=== PATIENT | male | born 1995 | race Caucasian/White ===

== ENCOUNTER 2022-04-11 22:45 | Emergency (ER) | payer OTHER ==
[~2022-04-11 22:45] MED LIST: Iopamidol 370 76% 100 ML VIAL ONE
[2022-04-11] MEDS ORDERED: Sodium Chloride 0.9% 1,000 ML ONE (23:28)
[2022-04-11] MEDS ORDERED: Ondansetron PF 4 MG/2 ML Vial ONE (23:28)
[2022-04-11 23:47] LABS: #Basophils 0.1 thou/uL (0.0-0.2); #Lymphocytes 1.5 thou/uL (1.20-3.40); #Monocytes 0.9 thou/uL (0.11-0.59); #Neutrophils 6.1 thou/uL (1.40-6.50); %Basophils 1.5 % (0.0-1.0); %Lymphocytes 17.6 % (21.0-51.0); %Monocytes 10.2 % (0.0-10.0); %Neutrophils 70.8 % (42.0-75.0); Hemoglobin 13.3 g/dL (14.0-18.0); Large Platelets SLIGHT; MDiff Complete? YES; Mean Corpuscular Hemoglobin 31.5 pg (27.0-31.0); Mean Corpuscular Volume 90.1 fl (78.0-98.0); Mean Platelet Volume 12.9 fL (7.4-10.4); Platelet Count 140 10x3/uL (130-400); Platelet Morphology Comment Appears Adequate; RBC Distribution Width 11.3 % (11.5-14.5); RBC Morphology Normal; White Blood Cell (WBC) Count 8.7 10x3/uL (4.8-10.8)
[2022-04-11 23:57] LABS: ALT (SGPT) 61 U/L (8-55); AST (SGOT) 59 U/L (5-34); Albumin 4.3 g/dL (3.5-5.0); Alkaline Phosphatase 51 U/L (40-110); Anion Gap 14 mmol/L (10-20); BUN (Urea Nitrogen) 17 mg/dL (8.9-20.6); Bilirubin, Total 0.7 mg/dL (0.2-1.2); Calc. Creatinine Clearance 0 mL/min (70-130); Calcium 9.3 mg/dL (7.8-10.44); Carbon Dioxide 24 mmol/L (22-29); Chloride 103 mmol/L (98-107); Estimated GFR 122; Globulin 2.8 g/dL (2.4-3.5); Glucose 136 mg/dL (70-105); Lipase 15 U/L (8-78); Potassium 3.7 mmol/L (3.5-5.1); Protein, Total 7.1 g/dL (6.0-8.3); Sodium 137 mmol/L (136-145)
== END 2022-04-12 00:27 | disposition home or self-care (01) ==
LOC: MADERS 22:45
DX: S22.050A Wedge compression fracture of T5-T6 vertebra, initial encounter for closed fracture (principal); M79.662 Pain in left lower leg; M79.661 Pain in right lower leg; M54.2 Cervicalgia; V89.2XXA Person injured in unspecified motor-vehicle accident, traffic, initial encounter
CPT/HCPCS: 70450; 71260; 72125; 74177; 80053; 83690; 85025; 96361; 96374; J2405; J7050; Q9967